=== PATIENT | male | born 1990 | race Caucasian/White ===

== ENCOUNTER 2017-09-24 12:22 | Emergency (ER) | payer MEDICAID ==
[~2017-09-24] VITALS: Ht 170.2 cm; Wt 99.2 kg
[~2017-09-24 12:22] MED LIST: AMLODIPINE BESY10 MG PO; AMLODIPINE BESYL5 MG PO; AMOXICILLIN 50500 MG PO; AZITHROMYCIN 2250 MG PO; BENADRYL25 MG PO; BENAZEPRIL HCL10 MG PO; BUSPAR; BUSPIRONE HCL10 MG PO; CARBAMAZEPINE100 MG PO; CEFUROXIME500 MG PO; CLONIDINE0.1 PO; ESKALITH300 MG PO; HUMALOG100 UNIT/1 SQ; LAMICTAL XR100 MG PO; LAMICTAL XR200 MG; LANTUS SC; LITHIUM CARBON600 MG PO; LOXAPINE25 MG PO; MEDROLDOSEPACK PO; METFORMIN 500500 MG PO; METFORMIN HCL500 MG PO; NORCO 5-325 TA1 EACH PO; TENEX1 MG; TESSALON200 MG PO; VENTOLIN HFA 1818 GM INH; ZOFRAN4 MG PO; ZPAK PO; ZYPREXA5 MG PO; cogentin
[2017-09-24] MEDS ORDERED: OXCARBAZEPINE150 MG PO (12:29)
[2017-09-24] MEDS ORDERED: [UNRECOGNIZED DRUG - OTHER] (12:31)
[2017-09-24 12:44] LABS: CALCIUM 8.3 mg/dL (8.5-10.1); POTASSIUM 4.3 mmol/L (3.5-5.1)
[2017-09-24 12:48] LABS: ALBUMIN 3.8 g/dL (3.4-5.0); TOTAL BILIRUBIN 0.3 mg/dL (<0.1-1.0); TOTAL PROTEIN 7.5 g/dL (6.4-8.2)
[2017-09-24 13:20] LABS: ABSOLUTE EOSINOPHILS 0.1 thou/uL (0.0-0.7); ABSOLUTE LYMPHOCYTES 2.2 thou/uL (0.8-5.3); ABSOLUTE MONOCYTES 0.5 thou/uL (0.0-1.2); BASOPHILS 0.6 %; HEMATOCRIT 44.6 % (42.0-52.0); HEMOGLOBIN 15.3 gm/dL (14.0-18.0); LYMPHOCYTES 31.8 %; MCH 27.4 pg (26.0-34.0); MCHC 34.4 g/dL (28.0-37.0); MCV 79.8 fL (80.0-100.0); MONOCYTES 7.8 %; MPV 10.5 fl. (7.2-11.1); NUCLEATED RBCS 0 /100WBC; PLATELET COUNT* 210 thou/uL (150-400); POLYS 58.8 %; RBC 5.58 mil/uL (4.50-6.00); RDW-CV 14.7 % (10.5-14.5); WBC 6.9 thou/uL (4.0-11.0)
[2017-09-24 13:27] LABS: URINE BILIRUBIN NEGATIVE (Negative); URINE BLOOD TRACE (Negative); URINE CLARITY CLEAR; URINE COLOR YELLOW; URINE GLUCOSE-RANDOM 1+ (Negative); URINE KETONES NEGATIVE (Negative); URINE LEUKOCYTES-REFLEX NEGATIVE (Negative); URINE NITRITE-REFLEX NEGATIVE (Negative); URINE PROTEIN NEGATIVE (Negative); URINE UROBILINOGEN 0.2 E.U./dl (0.2-1.0)
[2017-09-24] MEDS ORDERED: CIPRO250 M1 PO (13:42)
[2017-09-24] MEDS ORDERED: FLOMAX0.4 MG PO (13:42)
[2017-09-24] MEDS ORDERED: PERCOCET 5-3251 EACH PO (13:42)
[2017-09-24 14:37] VITALS: BP 130/60
== END 2017-09-24 14:38 | disposition home or self-care (01) ==
LOC: M.ERS 12:22
PROVIDERS: Family Medicine
DX: N13.2 Hydronephrosis with renal and ureteral calculous obstruction (principal); E11.9 Type 2 diabetes mellitus without complications; I10 Essential (primary) hypertension; F84.5 Asperger's syndrome; Z91.040 Latex allergy status; Z79.4 Long term (current) use of insulin